=== PATIENT | male | born 1975 | race American Indian/Alaskan Native ===

== ENCOUNTER 2021-12-15 17:05 | Emergency (ER) | payer SELFPAY | END 2021-12-15 17:10 | disposition left against medical advice (07) | LOC: ED 17:05 | DX: S99.922A Unspecified injury of left foot, initial encounter (principal); Z53.21 Procedure and treatment not carried out due to patient leaving prior to being seen by health care provider; X58.XXXA Exposure to other specified factors, initial encounter; Y93.89 Activity, other specified; Y92.89 Other specified places as the place of occurrence of the external cause; Y99.8 Other external cause status ==

== ENCOUNTER 2021-12-16 07:55 | Emergency (ER) | payer SELFPAY ==
[2021-12-16] MEDS ORDERED: IBUPROFEN 800 MG TAB PO ONE (10:37)
--- NOTE | 2021-12-16 11:13 | XRay Report ---
LEFT FOOT 3 VIEWS INDICATION: left foot pain. COMPARISON: None. IMPRESSION: Mild hallux valgus deformity is noted. No acute osseous abnormality or bone lesion. The re are early osteoarthritic changes at the first metatarsophalangeal joint. The remaining joint space s are unremarkable. The soft tissues are within normal limits. Signer Name: Thomas Hubbard Jr, MD Signed: 12/16/2021 11:09 AM Workstation Name: [id number]
--- NOTE | 2021-12-16 11:19 | Emergency Department Report ---
ED Lower Extremity HPI - General Chief Complaint: Extremity Problem,Nontraumatic Stated Complaint: FOOT INJURY Time Seen by Provider: 12/16/21 10:30 Source: patient Mode of arrival: Ambulatory Limitations: No Limitations - History of Present Illness Initial Comments: This is a 46-year-old male nontoxic, well nourished in appearance, no acute signs of distress presents to the ED with c/o of left foot pain 1 week. Patient stated that something light fell on his leg but does not remember what it was. Patient denies any other injuries trauma. Patient denies any numbness, tingling, fever, chills, nausea, vomiting, chest pain, shortness of breath, h eadache, stiff neck. Patient denies any joint swelling or joint redness. Patient denies decreased range of motion. Patient stated has decreased gait due to pain. Patient denies any allergies. MD Complaint: foot injury -: week(s) Injury: Foot: Left Place: home Severity: mild Severity scale (0 -10): 8 Improves With: rest Worsens With: palpation Associated Symptoms: able to partially bear weight. denies: snap/pop sensation, swelling, numbness, tingling, unable to bear weight - Related Data Previous Rx's Medication Instructions Recorded Last Taken Type Naproxen 500 mg PO Q12H PRN #12 tab 12/16/21 Unknown Rx Allergies Allergy/AdvReac Type Severity Reaction Status Date / Time No Known Allergies Allergy Verified 12/16/21 08:00 ED Review of Systems ROS: Stated complaint: FOOT INJURY Other details as noted in HPI Comment: All other systems reviewed and negative Constitutional: denies: chills, fever Eyes: denies: eye pain, eye discharge, vision change ENT: denies: ear pain, throat pain Respiratory: denies: cough, shortness of breath, wheezing Cardiovascular: denies: chest pain, palpitations Endocrine: no symptoms reported Gastrointestinal: denies: abdominal pain, nausea, diarrhea Genitourinary: denies: urgency, dysuria Musculoskeletal: denies: back pain, joint swelling, arthralgia Skin: denies: rash, lesions Neurological: denies: headache, weakness, paresthesias Psychiatric: denies: anxiety, depression Hematological/Lymphatic: denies: easy bleeding, easy bruising ED Past Medical Hx - Medications Home Medications: Home Medications Medication Instructions Recorded Confirmed Last Taken Type Naproxen 500 mg PO Q12H PRN #12 tab 12/16/21 Unknown Rx ED Physical Exam - General Limitations: No Limitations General appearance: alert, in no apparent distress - Head Head exam: Present: atraumatic, normocephalic - Eye Eye exam: Present: normal appearance - Neck Neck exam: Present: full ROM - Respiratory Respiratory exam: Absent: respiratory distress - Cardiovascular Cardiovascular Exam: Present: regular rate - Extremities Exam Extremities exam: Present: normal inspection, full ROM, tenderness, normal capillary refill. Absent: pedal edema, joint swelling - Expanded Lower Extremity Exam Left Hip exam: Present: full ROM Upper Leg exam: Present: full ROM Knee exam: Present: normal inspection, full ROM. Absent: tenderness, swelling Lower Leg exam: Present: normal inspection, full ROM. Absent: tenderness, swelling Ankle exam: Present: normal inspection, full ROM. Absent: tenderness, swelling, abrasion, laceration, ecchymosis, deformity, crepidus, dislocation, erythema, anterior draw sign Foot/Toe exam: Present: normal inspection, full ROM, tenderness. Absent: swelling, abrasion, laceration, ecchymosis, deformity, crepidus, dislocation, erythema, amputation, puncture wound, foreign body, calcaneal tenderness, tenderness at base of 5th metatarsal, nail avulsion, subungual hematoma Neuro vascular tendon exam: Present: no vascular compromise Gait: Positive: observed and limited by pain 1 - pain here - Back Exam Back exam: Present: full ROM - Neurological Exam Neurological exam: Present: alert, oriented X3 - Psychiatric Psychiatric exam: Present: normal affect, normal mood - Skin Skin exam: Present: warm, dry, intact, normal color. Absent: rash ED Course Vital Signs 12/16/21 08:00 Temperature 97.9 F Pulse Rate 82 Respiratory 16 Rate Blood Pressure 166/98 [Left] O2 Sat by Pulse 98 Oximetry - Reevaluation(s) Reevaluation #1: 12/16/21 11:25 Patient is speaking in full sentences with no signs of distress noted. ED Lower Extremity MDM - Radiology Data [facility] [address] [place] [address] XRay Report Signed Patient: LEONARDA RATLIFF MR#: [id number] : 1975 Acct:[id number] Age/Sex: 46 / M ADM Date: 12/16/21 Loc: ED Attending Dr: Ordering Physician: ESTEBAN MEJIA NP Date of Service: 12/16/21 Procedure(s): XR foot 3+V LT Accession Number(s): [id number] cc: ESTEBAN MEJIA NP Fluoro Time In Minutes: LEFT FOOT 3 VIEWS INDICATION: left foot pain. COMPARISON: None. IMPRESSION: Mild hallux valgus deformity is noted. No acute osseous abnormality or bone lesion. There are early osteoarthritic changes at the first metatarsophalangeal joint. The remaining joint spaces are unremarkable. The soft tissues are within normal limits. Signer Name: Thomas Hubbard Jr, MD Signed: 12/16/2021 11:09 AM Workstation Name: [id number] Transcribed By: TTR Dictated By: THOMAS HUBBARD JR, MD Electronically Authenticated By: THOMAS HUBBARD JR, MD Signed Date/Time: 12/16/21 1109 DD/ 1108 TD/TT: - Medical Decision Making This is a 46-year-old male that presents with left foot injury. Patient is stable and was examined by me. I referred patient to an orthopedic doctor for further evaluation for possible MRI. X-ray has been obtained and dictated by the radiologist. Patient is notified of the x-ray report with noted by the patient. Patient does have normal gait with some tenderness and no joint swelling. No ecchymosis. no joint redness or swelling. Not warm to touch. No signs of cellulites present. Patient was instructed to RICE therapy. Patient received Motrin for pain. Patient is discharged with Naproxen. At time of discharge, the patient does not seem toxic or ill in appearance. No acute signs of distress noted. Patient agrees to discharge treatment plan of care. No further questions noted by the patient. Critical care attestation.: If time is entered above; I have spent that time in minutes in the direct care of this critically ill patient, excluding procedure time. ED Disposition Clinical Impression: Injury of left foot Qualifiers: Encounter type: initial encounter Qualified Code(s): S99.922A - Unspecified injury of left foot, initial encounter Disposition: HOME / SELF CARE / HOMELESS Is pt being admited?: No Does the pt Need Aspirin: No Condition: Stable Instructions: RICE Therapy for Routine Care of Injuries, [id number] Additional Instructions: Follow-up with a orthopedic doctor in 3-5 days or if symptoms worsen and continue return to emergency room as soon as possible. No physical activity that extremity until cleared by orthopedic doctor Prescriptions: Naproxen 500 mg PO Q12H PRN #12 tab PRN Reason: Pain , Severe (7-10) Referrals: PRIMARY CAREMD [Referring] - 3-5 Days MYRNA ERNANDEZ MD [Staff Physician] - 3-5 Days Time of Disposition: 11:28
[2021-12-16 12:11] VITALS: BP 132/78
== END 2021-12-16 13:27 | disposition home or self-care (01) ==
LOC: ED 07:55
DX: S99.922A Unspecified injury of left foot, initial encounter (principal); W19.XXXA Unspecified fall, initial encounter; Y93.89 Activity, other specified; Y92.89 Other specified places as the place of occurrence of the external cause; Y99.8 Other external cause status
CPT/HCPCS: 99283

== ENCOUNTER 2022-01-30 15:52 | Emergency (ER) | payer SELFPAY ==
[2022-01-30] MEDS ORDERED: ACETAMINOPHEN W/CODEINE 300-30 MG TAB PO ONE (21:00)
[2022-01-30] MEDS ORDERED: predniSONE 20 MG TAB PO ONE (21:00)
[2022-01-30] MEDS ORDERED: IBUPROFEN 800 MG TAB PO ONE (21:00)
--- NOTE | 2022-01-30 21:54 | Emergency Department Report ---
ED Lower Extremity HPI - General Chief Complaint: Back Pain/Injury Stated Complaint: GOUT Time Seen by Provider: 01/30/22 20:59 Source: patient Mode of arrival: Ambulatory Limitations: No Limitations - History of Present Illness Initial Comments: Is a 46-year-old male with a history of gout who presents for gout flare to right great toe. Patient states 8/10 pain aching sharp throbbing type pain. There has been no fall injury or trauma. There is no numbness tingling or paralysis. This is a usual location for gout flare for this patient. Symptoms usually relieved by NSAIDs. There is no fevers no chills no other complaint. Patient remains ambulatory with minimal limp.. Complaint: other - Related Data Previous Rx's Medication Instructions Recorded Last Taken Type Naproxen 500 mg PO Q12H PRN #12 tab 12/16/21 Unknown Rx Indomethacin 50 mg PO Q8H PRN #30 cap 01/30/22 Unknown Rx predniSONE [Deltasone] 40 mg PO QDAY 5 Days #10 tab 01/30/22 Unknown Rx Allergies Allergy/AdvReac Type Severity Reaction Status Date / Time No Known Allergies Allergy Verified 12/16/21 08:00 ED Review of Systems ROS: Stated complaint: GOUT Other details as noted in HPI Constitutional: denies: chills, fever Eyes: denies: eye pain, eye discharge, vision change ENT: denies: ear pain, throat pain Respiratory: denies: cough, shortness of breath, wheezing Cardiovascular: denies: chest pain, palpitations Endocrine: no symptoms reported Gastrointestinal: denies: abdominal pain, nausea, diarrhea Genitourinary: denies: urgency, dysuria Musculoskeletal: other (Right great toe pain) Skin: denies: rash, lesions Neurological: denies: headache, weakness, paresthesias Psychiatric: denies: anxiety, depression Hematological/Lymphatic: denies: easy bleeding, easy bruising ED Past Medical Hx - Past Medical History Hx HIV: Yes Additional medical history: gout - Surgical History Additional Surgical History: abdominal? - Medications Home Medications: Home Medications Medication Instructions Recorded Confirmed Last Taken Type Naproxen 500 mg PO Q12H PRN #12 tab 12/16/21 Unknown Rx Indomethacin 50 mg PO Q8H PRN #30 cap 01/30/22 Unknown Rx predniSONE [Deltasone] 40 mg PO QDAY 5 Days #10 tab 01/30/22 Unknown Rx ED Physical Exam - General Limitations: No Limitations General appearance: alert, in no apparent distress - Head Head exam: Present: normocephalic, normal inspection - Eye Eye exam: Present: normal appearance, EOMI Pupils: Present: normal accommodation - ENT ENT exam: Present: mucous membranes moist - Neck Neck exam: Present: normal inspection, full ROM. Absent: tenderness, lymphadenopathy - Respiratory Respiratory exam: Present: normal lung sounds bilaterally. Absent: respiratory distress, wheezes, stridor - Cardiovascular Cardiovascular Exam: Present: regular rate, normal rhythm, normal heart sounds. Absent: systolic murmur, diastolic murmur, rubs, gallop - GI/Abdominal GI/Abdominal exam: Present: soft, normal bowel sounds - Rectal Rectal exam: Present: deferred - Extremities Exam Extremities exam: Present: normal inspection, full ROM, joint swelling (Right great toe) - Expanded Lower Extremity Exam Right Foot/Toe exam: Present: tenderness, swelling (Right great toe), erythema (Right great toe [employer] less than 3 seconds distal pulses intact no drainage no lacerations no abscess no crepitus). Absent: abrasion, laceration, ecchymosis, deformity, crepidus, calcaneal tenderness, tenderness at base of 5th metatarsal Neuro vascular tendon exam: Absent: pulse deficit, motor deficit, sensory deficit, tendon deficit Gait: Positive: observed and limited by pain - Back Exam Back exam: Present: normal inspection, full ROM - Neurological Exam Neurological exam: Present: alert, oriented X3, CN II-XII intact, reflexes normal. Absent: motor sensory deficit - Expanded Neurological Exam Expanded Patient oriented to: Present: person, place, time Speech: Present: fluid speech Motor strength exam: RUE: 5, LUE: 5, RLE: 5, LLE: 5 Best Eye Response (Maddie): (4) open spontaneously Best Motor Response (Maddie): (6) obeys commands Best Verbal Response (Clinton): (5) oriented [place] Total: 15 - Psychiatric Psychiatric exam: Present: normal affect, normal mood - Skin Skin exam: Present: warm, dry, intact, normal color. Absent: rash ED Course Vital Signs 01/30/22 17:20 Temperature 98.5 F Pulse Rate 105 H Respiratory 18 Rate Blood Pressure 167/103 [Left] O2 Sat by Pulse 97 Oximetry ED Lower Extremity MDM - Medical Decision Making Is a straightforward gout flare pain is improved with medications given in ED. Patient DC'd home with prescriptions. Patient will follow-up primary care doctor in 2 to 3 days. Patient verbalized agreement and understanding of discharge plan. P Critical care attestation.: If time is entered above; I have spent that time in minutes in the direct care of this critically ill patient, excluding procedure time. ED Disposition Clinical Impression: Gout attack Qualifiers: Gout site: toe Gout etiology: unspecified cause Laterality: right Qualified Code(s): M10.9 - Gout, unspecified Disposition: HOME / SELF CARE / HOMELESS Is pt being admited?: No Does the pt Need Aspirin: No Condition: Stable Instructions: Low-Purine Eating Plan Additional Instructions: Take medications as prescribed, follow-up with your doctor in 2 to 3 days. Ret urn to emergency department if symptoms worsen. Prescriptions: predniSONE [Deltasone] 40 mg PO QDAY 5 Days #10 tab Indomethacin 50 mg PO Q8H PRN #30 cap PRN Reason: Pain , Severe (7-10) Referrals: SHERRIE CORNELL MD [Staff Physician] - 3-5 Days Forms: Work/School Release Form(ED) Time of Disposition: 21:57
[2022-01-30 22:19] VITALS: BP 154/96
== END 2022-01-30 22:56 | disposition home or self-care (01) ==
LOC: ED 15:52
DX: M10.9 Gout, unspecified (principal); Z98.890 Other specified postprocedural states; Z79.899 Other long term (current) drug therapy
CPT/HCPCS: 99282